=== PATIENT | male | born 1965 | race Caucasian/White ===

== ENCOUNTER 2017-12-03 20:30 | Outpatient (CLI) | payer OTHER | END 2017-12-03 20:31 | disposition home or self-care (01) | LOC: SLEEPLAB 20:30 | PROVIDERS: ATTEND Family Medicine | DX: G47.33 Obstructive sleep apnea (adult) (pediatric) (principal); R53.83 Other fatigue; E66.9 Obesity, unspecified; R06.83 Snoring; I10 Essential (primary) hypertension; E11.9 Type 2 diabetes mellitus without complications | CPT/HCPCS: 95811 ==